=== PATIENT | female | born 1985 | race American Indian/Alaskan Native ===

== ENCOUNTER 2018-03-29 15:11 | Emergency (ER) | payer OTHER ==
[2018-03-29 15:38] VITALS: BP 136/76; PULSE 98; RESP 20; TEMP 98.3; O2SAT 100
--- NOTE | 2018-03-29 16:04 | C.PDOC ---
History Of Present Illness CC: Weakness Patient is a 33 year old female with past medical history of pre-diabetes, who presents to the ED with complaint of generalized weakness, headache, which she attributes to life-stressors and current stressors of finding out that her teenage daughter is . Patient admits to mild palpitations but denies chest pain, SOB, fever, chills, nausea, vomiting, abdominal pain, diarrhea/ constipation, recent sickness or recent travels. Patient states that she used to have a PMD, but admits to poor follow up due to financial issues. Time Seen by Provider: 03/29/18 15:51 Chief Complaint (Nursing): Anxiety History Per: Patient History/Exam Limitations: no limitations Onset/Duration Of Symptoms: Days Current Symptoms Are (Timing): Still Present Severity: None Pain Scale Rating Of: 0 Past Medical History Vital Signs: Last Vital Signs Temp 98.3 F 03/29/18 15:37 Pulse 98 H 03/29/18 15:37 Resp 20 03/29/18 15:37 BP 136/76 03/29/18 15:37 Pulse Ox 100 03/29/18 15:37 - Medical History PMH: No Chronic Diseases Surgical History: No Surg Hx Family History: States: No Known Family Hx - Social History Hx Tobacco Use: No Hx Alcohol Use: Yes Hx Substance Use: No - Immunization History Hx Tetanus Toxoid Vaccination: No Hx Influenza Vaccination: No Hx Pneumococcal Vaccination: No Review Of Systems Constitutional: Positive for: Weakness. Negative for: Fever, Chills Eyes: Negative for: Pain, Vision Change ENT: Negative for: Ear Pain, Ear Discharge Cardiovascular: Positive for: Palpitations. Negative for: Chest Pain, Edema, Light Headedness Respiratory: Negative for: Cough, Shortness of Breath, SOB with Excertion Gastrointestinal: Negative for: Nausea, Vomiting, Abdominal Pain, Diarrhea Musculoskeletal: Negative for: Neck Pain, Back Pain, Foot Pain Neurological: Positive for: Weakness, Headache. Negative for: Numbness, Incoordination, Confusion, Seizures, Altered Mental Status, Dizziness Psych: Positive for: Anxiety Physical Exam - Physical Exam Appears: No Acute Distress Skin: Normal Color Head: Atraumatic, Normacephalic Eye(s): bilateral: Normal Inspection, PERRL, EOMI Ear(s): Bilateral: Normal Nose: Normal Oral Mucosa: Other (Mildly dry ) Tongue: Normal Appearing Lips: Normal Appearing Teeth: Normal Dentition Neck: Normal, Normal ROM Chest: Symmetrical Cardiovascular: Rhythm Regular Respiratory: Normal Breath Sounds Gastrointestinal/Abdominal: Normal Exam, Bowel Sounds, Soft, No Tenderness Back: Normal Inspection Extremity: Normal ROM, No Tenderness, No Pedal Edema, No Calf Tenderness Extremity: Bilateral: Atraumatic Neurological/Psych: Oriented x3, Normal Speech, Normal Cognition, Normal Cranial Nerves ED Course And Treatment O2 Sat by Pulse Oximetry: 100 Disposition Discussed With : Bernardo Andrade - Disposition Referrals: [facility] [Provider Group] Sunny Hugo MD [Medical Doctor] - Disposition: HOME/ ROUTINE Disposition Time: 16:06 Condition: STABLE Additional Instructions: Please discharge patient home Please follow up with [facility], in order to establish primary care Please follow up with Dr. Gonzalez at [facility] in order to establish [facility] care Please increase your daily water intake, goal of 2 litter per day Please take care Instructions: Dehydration, Adult (DC), Stress (ED), Anxiety, Adult (DC) - Clinical Impression Clinical Impression: Dehydration, Anxiety in acute stress reaction
== END 2018-03-29 16:31 | disposition home or self-care (01) ==
LOC: C.ER 15:11
DX: E86.0 Dehydration (principal); F43.0 Acute stress reaction